=== PATIENT | female | born 1960 | race Two or more races ===

== ENCOUNTER 2025-02-14 18:48 | Emergency (ER) | payer MEDICARE, MEDICAID ==
[~2025-02-14] VITALS: Ht 162.6 cm; Wt 70.0 kg
[2025-02-14 18:50] VITALS: O2SAT 100
[2025-02-14] MEDS ORDERED: NAPR-681 MT (19:56)
[2025-02-14] MEDS: ACETAMINOPHEN 325MG TABLET PO ONE (19:59)
[2025-02-14] MEDS: KETOROLAC 30MG/ML VIAL IM ONE (19:59)
[2025-02-14 20:00] VITALS: BP 120/78; PULSE 94; RESP 18; TEMP 36.8; O2SAT 100
== END 2025-02-14 20:51 | disposition home or self-care (01) ==
LOC: ER 18:48
DX: M25.552 Pain in left hip (principal); M25.561 Pain in right knee; M25.532 Pain in left wrist; E78.00 Pure hypercholesterolemia, unspecified; I10 Essential (primary) hypertension; M17.11 Unilateral primary osteoarthritis, right knee; Z79.1 Long term (current) use of non-steroidal anti-inflammatories (NSAID); Z88.0 Allergy status to penicillin
CPT/HCPCS: 99284; 73502; 73100; 73560; 96372; J1885